=== PATIENT | female | born 1950 | race Caucasian/White ===

== ENCOUNTER 2023-06-01 16:42 | Emergency (ER) | payer MEDICARE ==
[~2023-06-01] VITALS: Ht 165.1 cm; Wt 90.7 kg
[2023-06-01 17:00] VITALS: BP 132/66; TEMP 97.9
[2023-06-01] MEDS ORDERED: ACETAMINOPHEN ES 500 MG TABLET ONE (19:44)
[2023-06-01 21:43] VITALS: O2SAT 96
[2023-06-01] MEDS ORDERED: ACETAMINOPHEN ES 500 MG TABLET PO ONE (22:00)
== END 2023-06-01 21:44 ==
LOC: ER 16:46 → EDBD 16:46 → ER 21:44
DX: S80.12XA Contusion of left lower leg, initial encounter (principal); M54.50 Low back pain, unspecified; I11.0 Hypertensive heart disease with heart failure; I50.9 Heart failure, unspecified; I48.91 Unspecified atrial fibrillation; E03.9 Hypothyroidism, unspecified; X58.XXXA Exposure to other specified factors, initial encounter; Y93.89 Activity, other specified; Y92.89 Other specified places as the place of occurrence of the external cause; Y99.8 Other external cause status
CPT/HCPCS: 73590-TC